=== PATIENT | female | born 1975 | race Caucasian/White ===

== ENCOUNTER 2017-07-17 10:04 | Emergency (ER) | payer BC ==
[~2017-07-17] VITALS: Ht 165.1 cm; Wt 103.3 kg
[~2017-07-17 10:04] MED LIST: ZNTT/150 PO
[2017-07-17 10:09] VITALS: TEMP 36.7; Ht 165.1 cm; Wt 103.3 kg
[2017-07-17] MEDS ORDERED: KETOROLAC TROMETHAMINE 30 MG/ML VIAL IV STA (10:46)
[2017-07-17] MEDS ORDERED: SODIUM CHLORIDE 0.9% 1000ML 1,000 ML IV STA ×2 (10:46→12:27)
[2017-07-17] MEDS ORDERED: ONDANSETRON INJ 2 MG/ML 2 ML VIAL IV STA (10:47)
[2017-07-17 10:59] LABS: BASO % 0.2 %; BASO ABS # 0.04 K/uL (0-0.2); COMPLETE YES; HEMATOCRIT 53.1 % (37-47); IG% 0.9 %; LYMPH % 26.1 %; LYMPH ABS # 4.59 K/uL (1.2-3.4); MEAN CELL VOLUME 82.7 fL (80-100); MEAN CORPUSCULAR HEMOGLOBIN 30.1 pg (25-34); MEAN CORPUSCULAR HGB CONC 36.3 g/dl (32-36); MEAN PLATELET VOLUME 10.9 fL (7.4-10.4); MONO % 7.6 %; NEUT % 61.2 %; PLATELET COUNT 365 K/uL (130-400); RED BLOOD COUNT 6.42 M/uL (4.2-5.4); WHITE BLOOD COUNT 17.59 K/uL (4.8-10.8)
[2017-07-17 11:02] LABS: URINE APPEARANCE CLEAR (CLEAR); URINE BILIRUBIN NEG (NEG); URINE COLOR YELLOW; URINE NITRITE NEG (NEG); UROBILINOGEN NEG (NEG); ZZUR CULT IF INDIC CLEAN CATCH NO
[2017-07-17 11:03] LABS: MANUAL MICROSCOPIC REQUIRED? NO; REVIEW REQ? NO
[2017-07-17 11:06] LABS: BUN/CREATININE RATIO 12.1 (10-20); CALCIUM 6.1 mg/dl (8.5-10.1); CREATININE 1.12 mg/dl (0.60-1.20); POTASSIUM 3.1 mmol/L (3.5-5.1)
[2017-07-17] MEDS ORDERED: LEVO25TA5 PO (11:09)
[2017-07-17] MEDS ORDERED: METR-163 PO (11:09)
[2017-07-17] MEDS ORDERED: POTASSIUM CHLORIDE 10 MEQ TABCR PO STA ×2 (11:18→14:29)
[2017-07-17] MEDS ORDERED: OPTIRAY 320 IV PRN (11:30)
--- NOTE | 2017-07-17 12:11 | DIAGNOSTIC IMAGING REPORT ---
ABD/PELVIS IV CONTRAST ONLY CLINICAL HISTORY: 41 years-old Female presenting with diffuse abd pain w/ wbc 18, nausea, cold sweats, numbness in the hands, legs, and face. TECHNIQUE: Multidetector CT of the abdomen and pelvis was performed after the administration of intravenous contrast. IV contrast: Deformity liters of Optiray 320. A dose lowering technique was used consistent with the principles of ALARA (as low as reasonably achievable). COMPARISON: None. CT DOSE (mGy.cm): The estimated cumulative dose is 1234.60 mGy.cm. 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 Lung bases: Groundglass opacity in the medial basal segment of the right lower lobe. Normal heart size. No pericardial or pleural effusion. Liver: Normal morphology. No liver lesion. Patent hepatic vasculature. Biliary: No intrahepatic or extrahepatic biliary ductal dilatation. Normal gallbladder. Pancreas: Normal. Spleen: Normal. Adrenal glands: Normal. Kidneys and ureters: Tiny hypodensity in the left kidney likely cysts but too small to characterize. No hydronephrosis. No nephrolithiasis. Normal ureters. Bladder: Normal. Pelvic organs: Uterus and ovaries normal. Bowel: Mild small bowel wall thickening in the jejunum with subtle mucosal hyperenhancement. No perienteric inflammatory change. Moderate amount of fluid noted in the small bowel. No bowel obstruction. Peritoneal cavity: No free fluid or intraperitoneal gas. Lymph nodes: Few prominent mesenteric lymph nodes in the region of the abnormal jejunum. No pathologically enlarged lymph nodes by CT size criteria. Vasculature: Aorta and IVC patent and normal in caliber. Abdominal wall: Normal. Musculoskeletal: Degenerative changes of the spine. IMPRESSION: 1. Subtle wall thickening of the jejunum with mucosal hyperenhancement and moderate amount of intraluminal fluid. This is a nonspecific appearance and can be seen in the setting of infectious enteritis, Celiac disease, or inflammatory bowel disease. Proximal small bowel infectious etiologies include Giardia and Strongyloides among other more common etiologies. 2. Groundglass opacity in the right lower lobe concerning for pneumonia versus aspiration. Electronically signed by: Tristan Neumann M.D. 07/17/2017 12:10 PM Dictated Date/Time: 07/17/2017 11:59 AM
[2017-07-17] MEDS ORDERED: LEVAQUIN 750MG / 150ML D5W IV ONE (12:30)
--- NOTE | 2017-07-17 13:23 | DIAGNOSTIC IMAGING REPORT ---
CHEST ONE VIEW PORTABLE HISTORY: cough COMPARISON: Chest 11/05/2013. Abdomen and pelvis CT 07/17/2017. FINDINGS: Confirmation of a subtle hazy opacity within the right medial lung base. The left lung is clear. No pleural effusions. No pneumothorax. The heart is normal in size. IMPRESSION: Confirmation of the subtle hazy opacity in the right medial lung base. This may represent a developing pneumonia. Electronically signed by: Roberto Askew M.D. 07/17/2017 1:22 PM Dictated Date/Time: 07/17/2017 1:20 PM
[2017-07-17] MEDS ORDERED: VANCOMYCIN HCL 125 MG/2.5ML SOLN PO STA (14:41)
[2017-07-17] MEDS ORDERED: RASPBERRY SYRUP 5 ML UDP PO ONE (15:00)
--- NOTE | 2017-07-17 15:39 | EMERGENCY ROOM VISIT NOTE ---
History Report prepared by Isidro: Lana Gamble Under the Supervision of: Dr. Jatin Montalvo D.O. First contact with patient: 10:25 Chief Complaint: NEURO SYMPTOMS Stated Complaint: NASUEA, COLD SWEAT, NUMBNESS IN HANDS/LEGS/FACE Nursing Triage Summary: pt reports last thru saturday had n/v/d/ called amb on saturday morning for her being dehydrated went to [facility]. went to last saturday dx with bronchitis. was tested on saturday for c diff. went to dr harvey on saturday. placed on antibiotic today cold sweats hands face go numb not feeling right. History of Present Illness The patient is a 41 year old female who presents to the Emergency Room with complaints of intermittent numbness to her hands that began five days ago. She currently rates her discomfort as a 3/10 in severity. The patient states that last Saturday she was started on a Z-pack and Prednisone for bronchitis. She states that on evening she developed nausea, vomiting, and diarrhea that was persistent through Saturday, noting four bouts of diarrhea per day. The patient states that Saturday she was evaluated in [place]'s emergency department after her whole body numbness. She states that she was found to be dehydrated and states that she tested negative for c-diff. The patient states that Saturday she saw her PCP's office and states that she was started on Flagyl and has taken four doses so far. She states that she has still intermittently been experiencing numbness in her hands and weakness. The patient states that she has had a persistent cough since she was diagnosed with bronchitis. The patient denies headache, change in vision, fevers, chest pain, shortness of breath, pain with urination, and melena. Source of History: patient Onset: five days ago Position: hand Symptom Intensity: 3/10 Quality: numbness Timing: intermittent Associated Symptoms: + cough, + nausea, + vomiting, + diarrhea Review of Systems See HPI for pertinent positives & negatives. A total of 10 systems reviewed and were otherwise negative. Past Medical & Surgical Medical Problems: (1) Vaginal delivery Family History Diabetes mellitus FH: gallbladder disease Heart disease Hypertension Social History Smoking Status: Never Smoker Alcohol Use: none Drug Use: none Marital Status: Housing Status: lives with family Occupation Status: other Current/Historical Medications Scheduled Levothyroxine Sodium (Levothyroxine Sodium), 1 TAB PO DAILY Metronidazole (Flagyl), 500 MG PO BID Allergies Coded Allergies: Codeine (Verified Allergy, Severe, ANAPHYLAXIS, 07/17/17) JITTERY Physical Exam Vital Signs Date Time Temp Pulse Resp B/P (MAP) Pulse Ox O2 Delivery O2 Flow Rate FiO2 07/17/17 13:54 92 18 104/68 100 Room Air 07/17/17 12:01 84 18 115/72 99 Room Air 07/17/17 11:08 100 18 109/79 96 Room Air 07/17/17 10:09 36.7 115 18 103/74 96 Room Air Physical Exam GENERAL: Sitting up in bed, disheveled, alert, well nourished, no distress, non- toxic EYE EXAM: normal conjunctiva. OROPHARYNX: no exudate, no erythema, lips, buccal mucosa, and tongue normal and mucous membranes are moist NECK: supple, no nuchal rigidity, no adenopathy, non-tender LUNGS: Clear to auscultation. Normal chest wall mechanics HEART: no murmurs, S1 normal and S2 normal ABDOMEN: abdomen soft, non-tender, normo-active bowel sounds, no masses, no rebound or guarding. BACK: Back is symmetrical on inspection and there is no deformity, no midline tenderness, no CVA tenderness. SKIN: no rashes and no bruising UPPER EXTREMITIES: upper extremities are grossly normal. LOWER EXTREMITIES: No pitting edema. NEURO EXAM: Normal sensorium, cranial nerves II-XII intact, normal speech, no weakness of arms, no weakness of legs. No drift. Finger to nose intact. Gross sensation intact. Medical Decision & Procedures ER Provider Diagnostic Interpretation: Radiology results as stated below per my review and the radiologist's interpretation: ABD/PELVIS IV CONTRAST ONLY CLINICAL HISTORY: 41 years-old Female presenting with diffuse abd pain w/ wbc 18, nausea, cold sweats, numbness in the hands, legs, and face. TECHNIQUE: Multidetector CT of the abdomen and pelvis was performed after the administration of intravenous contrast. IV contrast: Deformity liters of Optiray 320. A dose lowering technique was used consistent with the principles of ALARA (as low as reasonably achievable). COMPARISON: None. CT DOSE (mGy.cm): The estimated cumulative dose is 1234.60 mGy.cm. 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 Lung bases: Groundglass opacity in the medial basal segment of the right lower lobe. Normal heart size. No pericardial or pleural effusion. Liver: Normal morphology. No liver lesion. Patent hepatic vasculature. Biliary: No intrahepatic or extrahepatic biliary ductal dilatation. Normal gallbladder. Pancreas: Normal. Spleen: Normal. Adrenal glands: Normal. Kidneys and ureters: Tiny hypodensity in the left kidney likely cysts but too small to characterize. No hydronephrosis. No nephrolithiasis. Normal ureters. Bladder: Normal. Pelvic organs: Uterus and ovaries normal. Bowel: Mild small bowel wall thickening in the jejunum with subtle mucosal hyperenhancement. No perienteric inflammatory change. Moderate amount of fluid noted in the small bowel. No bowel obstruction. Peritoneal cavity: No free fluid or intraperitoneal gas. Lymph nodes: Few prominent mesenteric lymph nodes in the region of the abnormal jejunum. No pathologically enlarged lymph nodes by CT size criteria. Vasculature: Aorta and IVC patent and normal in caliber. Abdominal wall: Normal. Musculoskeletal: Degenerative changes of the spine. IMPRESSION: 1. Subtle wall thickening of the jejunum with mucosal hyperenhancement and moderate amount of intraluminal fluid. This is a nonspecific appearance and can be seen in the setting of infectious enteritis, Celiac disease, or inflammatory bowel disease. Proximal small bowel infectious etiologies include Giardia and Strongyloides among other more common etiologies. 2. Groundglass opacity in the right lower lobe concerning for pneumonia versus aspiration. Electronically signed by: Tristan Neumann M.D. 07/17/2017 12:10 PM Dictated Date/Time: 07/17/2017 11:59 AM CHEST ONE VIEW PORTABLE HISTORY: cough COMPARISON: Chest 11/05/2013. Abdomen and pelvis CT 07/17/2017. FINDINGS: Confirmation of a subtle hazy opacity within the right medial lung base. The left lung is clear. No pleural effusions. No pneumothorax. The heart is normal in size. IMPRESSION: Confirmation of the subtle hazy opacity in the right medial lung base. This may represent a developing pneumonia. Electronically signed by: Roberto Askew M.D. 07/17/2017 1:22 PM Dictated Date/Time: 07/17/2017 1:20 PM Laboratory Results 07/17/17 10:30 Red Blood Count 6.42, Mean Corpuscular Volume 82.7, Mean Corpuscular Hemoglobin 30.1, Mean Corpuscular Hemoglobin Concent 36.3, Mean Platelet Volume 10.9, Neutrophils (%) (Auto) 61.2, Lymphocytes (%) (Auto) 26.1, Monocytes (%) (Auto) 7.6, Eosinophils (%) (Auto) 4.0, Basophils (%) (Auto) 0.2, Neutrophils # (Auto) 10.77, Lymphocytes # (Auto) 4.59, Monocytes # (Auto) 1.34, Eosinophils # (Auto) 0.70, Basophils # (Auto) 0.04 07/17/17 10:30 Test 07/17/17 10:30 07/17/17 10:32 White Blood Count 17.59 K/uL (4.8-10.8) Red Blood Count 6.42 M/uL (4.2-5.4) Hemoglobin 19.3 g/dL (12.0-16.0) Hematocrit 53.1 % (37-47) Mean Corpuscular Volume 82.7 fL (80-100) Mean Corpuscular Hemoglobin 30.1 pg (25-34) Mean Corpuscular Hemoglobin Concent 36.3 g/dl (32-36) Platelet Count 365 K/uL (130-400) Mean Platelet Volume 10.9 fL (7.4-10.4) Neutrophils (%) (Auto) 61.2 % Lymphocytes (%) (Auto) 26.1 % Monocytes (%) (Auto) 7.6 % Eosinophils (%) (Auto) 4.0 % Basophils (%) (Auto) 0.2 % Neutrophils # (Auto) 10.77 K/uL (1.4-6.5) Lymphocytes # (Auto) 4.59 K/uL (1.2-3.4) Monocytes # (Auto) 1.34 K/uL (0.11-0.59) Eosinophils # (Auto) 0.70 K/uL (0-0.5) Basophils # (Auto) 0.04 K/uL (0-0.2) RDW Standard Deviation 41.5 fL (36.4-46.3) RDW Coefficient of Variation 13.9 % (11.5-14.5) Immature Granulocyte % (Auto) 0.9 % Immature Granulocyte # (Auto) 0.15 K/uL (0.00-0.02) Urine Test NEG (NEG) Anion Gap 7.0 mmol/L (3-11) Est Creatinine Clear Calc Drug Dose 79.6 ml/min Estimated GFR () 71.2 Estimated GFR (Non- 61.4 BUN/Creatinine Ratio 12.1 (10-20) Calcium Level 6.1 mg/dl (8.5-10.1) Total Bilirubin 0.3 mg/dl (0.2-1) Direct Bilirubin 0.1 mg/dl (0-0.2) Aspartate Amino Transf (AST/SGOT) 35 U/L (15-37) Alanine Aminotransferase (ALT/SGPT) 35 U/L (12-78) Alkaline Phosphatase 58 U/L (45-117) Total Protein 4.8 gm/dl (6.4-8.2) Albumin 2.1 gm/dl (3.4-5.0) Lipase 289 U/L (73-393) Urine Color YELLOW Urine Appearance CLEAR (CLEAR) Urine pH 6.0 (4.5-7.5) Urine Specific [place] 1.010 (1.000-1.030) Urine Protein NEG (NEG) Urine Glucose (UA) NEG (NEG) Urine Ketones NEG (NEG) Urine Occult Blood TRACE (NEG) Urine Nitrite NEG (NEG) Urine Bilirubin NEG (NEG) Urine Urobilinogen NEG (NEG) Urine Leukocyte Esterase TRACE (NEG) Urine WBC (Auto) 1-5 /hpf (0-5) Urine RBC (Auto) 0-4 /hpf (0-4) Urine Hyaline Casts (Auto) 0 /lpf (0-5) Urine Epithelial Cells (Auto) 5-10 /lpf (0-5) Urine Bacteria (Auto) NEG (NEG) Date/Time Source Procedure Growth Status 07/17/17 12:30 Stool C.difficile Toxin B Gene (PCR) - Final Positive for C. difficile toxin B gene Complete Laboratory results per my review. Medications Administered Medications (Trade) Dose Ordered Sig/Mauricio Route Start Time Stop Time Status Last Admin Dose Admin Sodium Chloride 1,000 ml @ 999 mls/hr Q1H1M STAT IV 07/17/17 10:46 07/17/17 11:46 DC 07/17/17 11:05 999 MLS/HR Ketorolac Tromethamine (Toradol Inj) 30 mg NOW STAT IV 07/17/17 10:46 07/17/17 10:48 DC 07/17/17 11:04 30 MG Ondansetron HCl (Zofran Inj) 4 mg NOW STAT IV 07/17/17 10:47 07/17/17 10:48 DC 07/17/17 11:04 4 MG Potassium Chloride (Klor-Con M10) 40 meq NOW STAT PO 07/17/17 11:18 07/17/17 11:20 DC 07/17/17 11:35 40 MEQ Levofloxacin (Levaquin / D5W) 750 mg NOW ONCE IV 07/17/17 12:30 07/17/17 12:31 DC 07/17/17 12:41 750 MG Sodium Chloride 1,000 ml @ 999 mls/hr Q1H1M STAT IV 07/17/17 12:27 07/17/17 13:27 DC 07/17/17 12:41 999 MLS/HR Potassium Chloride (Klor-Con M10) 40 meq NOW STAT PO 07/17/17 14:29 07/17/17 14:30 DC 07/17/17 15:30 40 MEQ Vancomycin HCl (Vancomycin Oral Soln) 125 mg NOW STAT PO 07/17/17 14:41 07/17/17 14:43 DC 07/17/17 15:32 125 MG Raspberry (Raspberry Syrup 5ml Cup) 5 ml ONE ONCE PO 07/17/17 15:00 07/17/17 15:01 DC 07/17/17 15:31 5 ML ED Course ED COURSE: Vital signs were reviewed and showed tachycardic The patients medical record was reviewed The above diagnostic studies were performed and reviewed. ED treatments and interventions as stated above. 1038: The patient was evaluated in room B2. A complete history and physical examination was performed. 1046: Ordered Toradol Inj 30 mg IV, Sodium Chloride 1000 ml @ 999 mls/hr IV, Zofran Inj 4 mg IV. 1118: Ordered Potassium Chloride 40 meq PO. 1226: I reevaluated the patient and she is resting comfortably. I updated her at this time on her test results. Ordered Sodium Chloride 1000 ml @ 999 mls/hr IV. 1230: Ordered Levofloxacin 750 mg IV. 1406: I discussed the patients case with Dr. Schroeder, Infectious Disease. She recommends Levaquin for the patient. 1408: Upon reevaluation, the patient is resting comfortably.I discussed my findings with the patient and she understands and agrees with the treatment plan. Based on the patients age, coexisting illnesses, exam and lab findings the decision to treat as an outpatient was made. The patient remained stable while under my care. The patient appeared well at the time of discharge. 1429: Ordered Potassium Chloride 40 meq PO. Medical Decision Differential Diagnosis includes but is not limited to dehydration, stroke, anemia, hypoglycemia, hyponatremia, hypernatremia, urinary tract infection, pneumonia, bronchitis, sepsis, gastroenteritis, additional abdominal pathology, metabolic abnormalities and infections. Patient is a 41-year-old female who presents to ER for chills associated with weakness, cough and diarrhea. Recently treated with antibiotics for pneumonia which stopped because she obtained diarrhea. At this point is treated with PCP for 24 hours with Flagyl for possible C. difficile. Labs were obtained. She has a leukocytosis of 18,000. Hemoccult is 19 showing that she is dehydrated. Sodium and potassium are consistent with dehydration as well. Remainder of BMP , LFTs, bilirubin and lipase is unremarkable. UA and was negative. CT shows possible infectious colitis. C. difficile was eventually positive. Chest x-ray and CT to confirm a pneumonia. Patient was given IV Levaquin and oral vancomycin. She is well-appearing. Vitals are stable. I do believe she can be discharged as an outpatient. I discussed this with patient and family. They were agreeable. Care management set up an appointment with her PCP tomorrow and patient was discharged on oral vancomycin as she also has a pneumonia and this would be a complicated C. difficile infection in combination with a pneumonia. Potassium was repleted on 2 separate occasions for a total of 80 mEq. Discussed with Pt concerning signs and symptoms to watch out for. Pt was instructed to follow up with their PCP and discussed with the patient their option to return to the ED at anytime for persistent or worsening symptoms. The appropriate anticipatory guidance and out-patient management, including indications for return to the emergency department, were explained at length to the patient and understood. Medication Reconcilliation Current Medication List: was personally reviewed by me Blood Pressure Screening Patient's blood pressure: Normal blood pressure Blood pressure disposition: Did not require urgent referral Consults Time Called: 1403 Consulting Physician: Dr. Schroeder, Infectious Disease Returned Call: 1406 I discussed the patients case with Dr. Schroeder, Infectious Disease. She recommends Levaquin for the patient. Impression Primary Impression: Pneumonia Additional Impressions: Clostridium difficile diarrhea Hypokalemia Scribe Attestation The scribe's documentation has been prepared under my direction and personally reviewed by me in its entirety. I confirm that the note above accurately reflects all work, treatment, procedures, and medical decision making performed by me. Departure Information Dispostion Home / Self-Care Referrals Louise Morrsion D.O. (PCP) Forms HOME CARE DOCUMENTATION FORM, IMPORTANT VISIT INFORMATION, WORK / SCHOOL INSTRUCTIONS Patient Instructions Clostridium Difficile Infec, [facility], Pneumonia (Bacterial) - [facility] Additional Instructions Please follow up with your primary care doctor with in the next 24 hours. Any worsening of your symptoms, please return to the ED immediately. This includes any fevers greater than 100.4, worsening pain, chest pain, shortness breath, persistent nausea, vomiting, unable to eat or drink, or any other concerning signs or symptoms from your standpoint. Please take both antibiotics as prescribed which includes Levaquin and vancomycin. Vancomycin will be for a total of 14 days. Endocrine will be for a total of 10 days. Please stop taking her Flagyl. Please follow up with your PCP in 24-48 hours. Problem Qualifiers Primary Impression: Pneumonia Pneumonia type: due to unspecified organism Laterality: unspecified laterality Lung location: unspecified part of lung Qualified Codes: J18.9 - Pneumonia, unspecified organism
[2017-07-17 15:41] VITALS: BP 107/74; PULSE 100; O2SAT 100
--- NOTE | 2017-07-17 16:16 | Pharmacy Progress Note ---
ED Pharmacist Progress Note Date of Service: Jul 17, 2017. Patient in need of Rx for oral vancomycin and levaquin for treatment of C. Diff and CAP. [facility] and availability of vancomycin solution vs. capsules. Capsules at patient preferred pharmacy was found to be ~$315. [facility] was able to offer the solution for ~$ 100. Confirmed this was okay with patient and subsequently called in an RX for PO vancomycin 125mg QID X 14 days and levaquin 750mg Q24 X [address] Montalvo.
== END 2017-07-17 15:45 | disposition home or self-care (01) ==
LOC: C.EDB 10:06
DX: J18.9 Pneumonia, unspecified organism (principal); A04.72 Enterocolitis due to Clostridium difficile, not specified as recurrent; E87.6 Hypokalemia; E86.0 Dehydration; Z83.3 Family history of diabetes mellitus; Z83.79 Family history of other diseases of the digestive system; Z82.49 Family history of ischemic heart disease and other diseases of the circulatory system

== ENCOUNTER 2018-03-23 14:23 | Emergency (ER) | payer BC, OTHER ==
[~2018-03-23] VITALS: Ht 165.1 cm; Wt 107.0 kg
[~2018-03-23 14:23] MED LIST changes: +LEVO25TA5 PO; +METR-163 PO; -ZNTT/150 PO
[2018-03-23 14:25] VITALS: TEMP 36.6; Ht 165.1 cm; Wt 107.0 kg
[2018-03-23] MEDS ORDERED: MISCCAP80 PO (15:03)
[2018-03-23] MEDS ORDERED: SUMA25TA12 PO (15:03)
[2018-03-23] MEDS ORDERED: OYST500T47 PO (15:03)
[2018-03-23] MEDS ORDERED: VNTHFA/IN INH (15:03)
[2018-03-23] MEDS ORDERED: LEVO112T2 PO (15:03)
[2018-03-23] MEDS ORDERED: FLUT1INH INH (15:03)
[2018-03-23] MEDS ORDERED: CHOL1TAB42 PO (15:03)
[2018-03-23] MEDS ORDERED: FLUT0.15 NAE (15:03)
--- NOTE | 2018-03-23 15:07 | DIAGNOSTIC IMAGING REPORT ---
R ELBOW MIN 3 VIEWS ROUTINE CLINICAL HISTORY: r elbow pain trauma. Pain. COMPARISON: None. DISCUSSION: The bones and joint spaces appear intact. There is no evidence of fracture, dislocation or bony disease. There is no evidence for soft tissue swelling. IMPRESSION: Negative study. The above report was generated using voice recognition software. It may contain grammatical, syntax or spelling errors. Electronically signed by: Kashif Sanford M.D. 03/23/2018 3:06 PM Dictated Date/Time: 03/23/2018 3:05 PM
--- NOTE | 2018-03-23 15:21 | DIAGNOSTIC IMAGING REPORT ---
HEAD WITHOUT CONTRAST (CT) CT DOSE: 638.56 mGycm HISTORY: Trauma. Mental status change. fall hit head TECHNIQUE: Multiaxial CT images of the head were performed without the use of intravenous contrast. A dose lowering technique was utilized adhering to the principles of ALARA. Comparison: None. Findings: The paranasal sinuses and mastoid air cells are clear. The calvarium and skull base are intact. The ventricles and sulci are within normal limits. There is no mass, hematoma, midline shift, or acute infarct. Impression: No acute intracranial abnormality. The above report was generated using voice recognition software. It may contain grammatical, syntax or spelling errors. Electronically signed by: Kashif Sanford M.D. 03/23/2018 3:19 PM Dictated Date/Time: 03/23/2018 3:18 PM
--- NOTE | 2018-03-23 15:30 | DIAGNOSTIC IMAGING REPORT ---
CERVICAL SPINE W/O CT DOSE: 439.01 mGycm HISTORY: Trauma fall hit head TECHNIQUE: Multiaxial CT images of the cervical spine were performed and reformatted in the sagittal and coronal plane without the use of contrast. A dose lowering technique was utilized adhering to the principles of ALARA. COMPARISON: None. FINDINGS: No fractures. No subluxation. Prevertebral soft tissues and the C1-C2 interval are intact. No pneumothorax. IMPRESSION: No fractures within the cervical spine. The above report was generated using voice recognition software. It may contain grammatical, syntax or spelling errors. Electronically signed by: Kashif Sanford M.D. 03/23/2018 3:28 PM Dictated Date/Time: 03/23/2018 3:28 PM
[2018-03-23 16:04] VITALS: BP 145/82; PULSE 79; O2SAT 98
--- NOTE | 2018-03-23 19:04 | EMERGENCY ROOM VISIT NOTE ---
History Report prepared by Isidro: Josiane Gaston Under the Supervision of: Dr. Jatin Montalvo D.O. 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 She reports she was helping her cut down a tree by holding a rope. As she was pulling the rope, she tripped and fell on some rocks on the ground. The patient describes her head injury as a "heaviness" and numbness. She has some jaw pain and a headache but denies LOC, neck pain, change in vision, fevers , chest pain, shortness of breath, nausea, vomiting, diarrhea, pain with urination, melena, or leg swelling. 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 Negative changes in vision, leg swelling Review of Systems See HPI for pertinent positives & negatives. A total of 10 systems reviewed and were otherwise negative. Past Medical & Surgical Medical Problems: (1) Vaginal delivery Family History Diabetes mellitus FH: gallbladder disease Heart disease Hypertension Social History Smoking Status: Never Smoker Alcohol Use: none Drug Use: none Marital Status: Housing Status: lives with family Occupation Status: other Current/Historical Medications Scheduled Cholecalciferol (Vitamin D), 7,000 UNITS PO DAILY Fluticasone Furoate-Vilanterol (Breo Ellipta), 1 PUFF INH DAILY Levothyroxine Sodium (Synthroid), 112 MCG PO DAILY Oyster Shell (Calcium), 500 MG PO DAILY Probiotic Product (Probiotic), 1 CAP PO DAILY Sumatriptan Succinate (Imitrex), 50 MG PO PRN Scheduled PRN Albuterol Hfa (Ventolin Hfa), 2 PUFFS INH Q6H PRN for SOB/Wheezing Fluticasone Propionate (Nasal) (Flonase Allergy Relief), 2 SPRAYS DAVONTE DAILY PRN for Nasal Congestion Allergies Coded Allergies: Codeine (Verified Allergy, Severe, ANAPHYLAXIS, 07/17/17) JITTERY Physical Exam Vital Signs Date Time Temp Pulse Resp B/P (MAP) Pulse Ox O2 Delivery O2 Flow Rate FiO2 03/23/18 16:04 79 16 145/82 98 03/23/18 14:25 36.6 90 17 171/103 98 Room Air Physical Exam GENERAL: alert, well appearing, well nourished, no distress, non-toxic HEAD: normal cephalic. Head contusion to the posterior occiput with swelling and bruising. EYE EXAM: normal conjunctiva, PERRL and EOM's grossly intact OROPHARYNX: no exudate, no erythema, lips, buccal mucosa, and tongue normal and mucous membranes are moist EARS: TMs clear b/l NECK: supple, no nuchal rigidity, no adenopathy, non-tender CHEST: stable to compression anteriorly and posteriorly LUNGS: clear to auscultation. Normal chest wall mechanics HEART: no murmurs, S1 normal and S2 normal ABDOMEN: abdomen soft, non-tender, normo-active bowel sounds, no masses, no rebound or guarding. PELVIS: stable to compression anteriorly and posteriorly BACK: Back is symmetrical on inspection and there is no deformity, no midline tenderness, no CVA tenderness. UPPER EXTREMITIES: With the exception of right elbow with small abrasion and minimal pain with ROM, full active and passive range of motion of all joints without tenderness to palpation LOWER EXTREMITIES: full active and passive range of motion of all joints without tenderness to palpation NEURO EXAM: Normal sensorium, cranial nerves II-XII grossly intact, normal speech, no gross weakness of arms, no gross weakness of legs. GCS: 15. Medical Decision & Procedures ER Provider Diagnostic Interpretation: Radiology results as stated below per my review and the radiologist's interpretation: HEAD WITHOUT CONTRAST (CT) CT DOSE: 638.56 mGycm HISTORY: Trauma. Mental status change. fall hit head TECHNIQUE: Multiaxial CT images of the head were performed without the use of intravenous contrast. A dose lowering technique was utilized adhering to the principles of ALARA. Comparison: None. Findings: The paranasal sinuses and mastoid air cells are clear. The calvarium and skull base are intact. The ventricles and sulci are within normal limits. There is no mass, hematoma, midline shift, or acute infarct. Impression: No acute intracranial abnormality. The above report was generated using voice recognition software. It may contain grammatical, syntax or spelling errors. Electronically signed by: Kashif Sanford M.D. 03/23/2018 3:19 PM R ELBOW MIN 3 VIEWS ROUTINE CLINICAL HISTORY: r elbow pain trauma. Pain. COMPARISON: None. DISCUSSION: The bones and joint spaces appear intact. There is no evidence of fracture, dislocation or bony disease. There is no evidence for soft tissue swelling. IMPRESSION: Negative study. The above report was generated using voice recognition software. It may contain grammatical, syntax or spelling errors. Electronically signed by: Kashif Sanford M.D. 03/23/2018 3:06 PM CERVICAL SPINE W/O CT DOSE: 439.01 mGycm HISTORY: Trauma fall hit head TECHNIQUE: Multiaxial CT images of the cervical spine were performed and reformatted in the sagittal and coronal plane without the use of contrast. A dose lowering technique was utilized adhering to the principles of ALARA. COMPARISON: None. FINDINGS: No fractures. No subluxation. Prevertebral soft tissues and the C1-C2 interval are intact. No pneumothorax. IMPRESSION: No fractures within the cervical spine. The above report was generated using voice recognition software. It may contain grammatical, syntax or spelling errors. Electronically signed by: Kashif Sanford M.D. 03/23/2018 3:28 PM ED Course ED COURSE: Vital signs were reviewed and showed hypertensive situationally. The patients medical record was reviewed The above diagnostic studies were performed and reviewed. ED treatments and interventions as stated above. 1430: The patient was evaluated in room D6. A complete history and physical examination was performed. 1543: Upon reevaluation, the patient is feeling better. I discussed my findings with the patient and she understands and agrees with the treatment plan. Based on the patients age, coexisting illnesses, exam and lab findings the decision to treat as an outpatient was made. The patient remained stable while under my care. The patient appeared well at the time of discharge. Medical Decision Differential diagnoses include major intracranial, cervical, spinal, thoracic, abdominal, pelvic and neurologic injury. Fracture, contusion, sprain, strain, laceration, abrasions included as well. Patient is a 42-year-old female that presents to ER for falling backwards and hitting her head. She has mild right elbow pain and a headache as well. She has no other complaints. She is neurologically intact. CT head and cervical spine were negative. X-rays of the elbow are unremarkable. Patient was updated bedside. Encouraged take Tylenol/Motrin. Discharged instructed not to return to any physical activity until cleared by PCP. Discussed with Pt concerning signs and symptoms to watch out for. Pt was instructed to follow up with their PCP and discussed with the patient their option to return to the ED at anytime for persistent or worsening symptoms. The appropriate anticipatory guidance and out-patient management, including indications for return to the emergency department, were explained at length to the patient and understood. Head Trauma GCS Score: 15 Medication Reconcilliation Current Medication List: was personally reviewed by me Blood Pressure Screening Patient's blood pressure: Elevated blood pressure Blood pressure disposition: Elevated BP felt to be situational Impression Primary Impression: Concussion Additional Impression: Fall Scribe Attestation The scribe's documentation has been prepared under my direction and personally reviewed by me in its entirety. I confirm that the note above accurately reflects all work, treatment, procedures, and medical decision making performed by me. Departure Information Dispostion Home / Self-Care Referrals Louise Morrison D.O. (PCP) Forms HOME CARE DOCUMENTATION FORM, IMPORTANT VISIT INFORMATION Patient Instructions My [facility] Additional Instructions Please follow up with your primary care doctor with in the next 24 hours. Any worsening of your symptoms, please return to the ED immediately. This includes any fevers greater than 100.4, worsening pain, chest pain, shortness breath, persistent nausea, vomiting, unable to eat or drink, weakness or numbness in her arms legs, confusion, or any other concerning signs or symptoms from your standpoint. Please take Tylenol or Motrin as needed for pain. Problem Qualifiers Primary Impression: Concussion Encounter type: initial encounter Loss of consciousness presence/duration: without LOC Qualified Codes: S06.0X0A - Concussion without loss of consciousness, initial encounter Additional Impression: Fall Encounter type: initial encounter Qualified Codes: W19.XXXA - Unspecified fall, initial encounter
== END 2018-03-23 16:05 | disposition home or self-care (01) ==
LOC: C.EDB 14:25 → C.EDD 16:05
DX: S06.0X0A Concussion without loss of consciousness, initial encounter (principal); S50.311A Abrasion of right elbow, initial encounter; W01.198A Fall on same level from slipping, tripping and stumbling with subsequent striking against other object, initial encounter; Y93.89 Activity, other specified; Z83.3 Family history of diabetes mellitus; Z83.79 Family history of other diseases of the digestive system; Z82.49 Family history of ischemic heart disease and other diseases of the circulatory system; Z79.899 Other long term (current) drug therapy; Z88.5 Allergy status to narcotic agent